=== PATIENT | male | born 1960 | race Caucasian/White ===

== ENCOUNTER 2024-02-09 13:07 | Emergency (ER) | payer OTHER, SELFPAY ==
[2024-02-09 13:12] VITALS: BP 154/74
--- NOTE | 2024-02-09 13:12 | ED.GENMED ---
ED Provider Triage
<Dirk Horvath PA-C - Last Filed: 02/09/24 13:14>
-
Patient seen by provider in Triage?: Seen in Triage
63-year-old male on a baby aspirin presents after a fall 2 nights ago. Notes large amount of bruising to right hip. He did not strike his head. He notes an abrasion to his elbow. He is ambulatory.
X-ray ordered through triage appropriate for waiting room or RP
Patient seen by medical provider at triage. He warrants further assessment
History of Present Illness
<Dirk Horvath PA-C - Last Filed: 02/09/24 13:14>
General
Chief Complaint: Fall
Time Seen by Provider: 02/09/24 16:42
<Alicia Sy PA-C - Last Filed: 02/10/24 01:05>
General
Source: patient and spouse
Exam Limitations: none
History of Present Illness
History of Present Illness:
63yoM with a history of coronary artery disease, hypertension, hyperlipidemia presenting with his for evaluation after a fall 3 days ago. Patient was walking on his back deck when he slipped on ice landing on his right hip. He denies any head
strike or loss of consciousness. He also sustained some abrasions to his bilateral elbows during the fall. Patient woke up the following morning with a large bruise to his right hip. 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
lateral aspect of the thigh. became worried that he may have a blood clot so decided to bring him to the ED. Patient is able to bear weight on the leg. He denies any paresthesias. He reports being up to date on Tdap.
Phy Exam
<Alicia Sy PA-C - Last Filed: 02/10/24 01:05>
General Physical Exam
General Presentation: well appearing and no apparent distress
General age: appears stated age
General Skin: warm and dry
General Habitus: normal
General Mental: alert
ENT Exam
ENT Exam: normocephalic
Pulmonary Exam
Pulmonary Exam: no respiratory distress
Neurological Exam
Neurological Exam: alert
Tammy Coma Scale
Eye Opening: Spontaneous
Verbal Response: Oriented
Motor Response: Obeys Commands
GCS Total Score: 15
Musculoskeletal Exam
Musculoskeletal Exam: other (Large amount of ecchymosis noted to R posterior/lateral hip. +Tenderness to lateral joint. ROM of hip intact. Compartments of thigh are soft. No pitting edema of extremity. 2+ DP pulse and sensation intact. )
Skin Exam
Skin Exam: warm/dry and other (Abrasions noted to bilateral elbows)
Psychiatric Exam
Psychiatric Exam: normal mood/affect
Course
<Dirk Horvath PA-C - Last Filed: 02/09/24 13:14>
Orders/Labs/Results
Orders:
Orders
02/09/24 13:09
Hip, Right 2-3 Views [CR Hip - RT w/wo Pel 2-3 Vw*] Urgent
Comment:
Reason For Exam: fall
Include a pelvis x-ray?: Yes
Vital Signs
Initial and Last Documented VS:
Initial Vital Signs
Temp Pulse Resp BP Pulse Ox
98 F 63 16 154/74 100
02/09/24 13:12 02/09/24 13:12 02/09/24 13:12 02/09/24 13:12 02/09/24 13:12
Last Documented Vital Signs
Temp Pulse Resp BP Pulse Ox
98 F 60 18 150/70 100
02/09/24 13:12 02/09/24 17:38 02/09/24 17:38 02/09/24 17:38 02/09/24 17:38
<Alicia Sy PA-C - Last Filed: 02/10/24 01:05>
Orders/Labs/Results
Orders:
Orders
02/09/24 13:09
Hip, Right 2-3 Views [CR Hip - RT w/wo Pel 2-3 Vw*] Urgent
Comment:
Reason For Exam: fall
Include a pelvis x-ray?: Yes
Vital Signs
Initial and Last Documented VS:
Initial Vital Signs
Temp Pulse Resp BP Pulse Ox
98 F 63 16 154/74 100
02/09/24 13:12 02/09/24 13:12 02/09/24 13:12 02/09/24 13:12 02/09/24 13:12
Last Documented Vital Signs
Temp Pulse Resp BP Pulse Ox
98 F 60 18 150/70 100
02/09/24 13:12 02/09/24 17:38 02/09/24 17:38 02/09/24 17:38 02/09/24 17:38
<Alicia Sy PA-C - Last Filed: 02/10/24 01:05>
MDM/Problems Addressed
Differential Diagnosis Includes:
63yoM here with R hip pain after a fall 2 days ago. Able to bear weight. Large amount of ecchymosis noted on exam without palpable hematoma. ROM is normal. No clinical signs of compartment syndrome. RLE is neurovascularly intact. Differential
diagnosis includes but is not limited to: contusion, fracture, sprain
X-rays of hip obtained which are negative for fracture. Supportive care discussed including ice, elevation, and PRN Tylenol. Advised f/u with PCP. He was discharged in stable condition.
<Alicia Sy PA-C - Last Filed: 02/10/24 01:05>
*Critical Care Note
Total Time (30-74mins, 75-104mins- exclusive of procedures): Not Applicable
ED Attending Note
<Dirk Horvath PA-C - Last Filed: 02/09/24 13:14>
-
Portions of this chart may have been created with voice recognition software.� Occasional wrong word or��sound alike� substitutions may have occurred due to the inherent limitations of voice recognition software.
Discharge Plan
Departure
Patient Disposition: Home (Routine Discharge)
Date of Disposition: 02/09/24
Time of Disposition: 17:25
Patient with high blood pressure during this ER visit?: Yes
Discharge Problem:
Contusion of right hip
Instructions: Contusion (DC)
Activity Restrictions/Additional Instructions:
Apply ice to affected area and elevate your leg to help with swelling. Take Tylenol as needed for pain.
Please follow-up with your family doctor and return to the ER with any new or worsening symptoms.
Interventions
Interventions:
*Risk Screen - Suicide Last Done: 02/09/24 13:14
*General Assessment Last Done: 02/09/24 14:05
*Neglect/Abuse Screening Last Done: 02/09/24 13:14
*ED COVID-19 Vaccine History Last Done: 02/09/24 14:05
*Nursing Disposition Last Done: 02/09/24 17:38
ED-Musculoskeletal Assessment Last Done: 02/09/24 14:05
ED- Neurological Assessment Last Done: 02/09/24 14:05
ED-Skin Assessment Last Done: 02/09/24 14:05
Discharge Date and Time
Discharge Date/Time: 02/09/24 17:49
Print Language: UGANDAN
[2024-02-09 17:38] VITALS: BP 150/70
== END 2024-02-09 17:49 | disposition home or self-care (01) ==
LOC: EMR 13:07
PROVIDERS: EMERGENCY PHYSICIAN Emergency Medicine
DX: S70.01XA Contusion of right hip, initial encounter (principal); S50.312A Abrasion of left elbow, initial encounter; S50.311A Abrasion of right elbow, initial encounter; W00.0XXA Fall on same level due to ice and snow, initial encounter; I25.10 Atherosclerotic heart disease of native coronary artery without angina pectoris; I10 Essential (primary) hypertension; E78.5 Hyperlipidemia, unspecified
CPT/HCPCS: 99283; 73502